=== PATIENT | male | born 1955 | race African-American/Black ===

== ENCOUNTER 2019-08-25 14:34 | Inpatient (IN) | payer MEDICARE, MEDICAID ==
[~2019-08-25] VITALS: Ht 172.7 cm; Wt 78.5 kg
[~2019-08-25 14:34] MED LIST: BENA40TA9 PO; HYDR12.54 PO; PHEN100C4 PO; SIMV10TA6 PO
[2019-08-25 17:10] LABS: BASOPHILS % 0.6 % (0.0-2.0); EOSINOPHILS % 0.1 % (0.0-5.0); HEMATOCRIT. 42.9 % (42.0-52.0); HEMOGLOBIN. 14.3 g/dL (14.0-18.0); LYMPHOCYTES % 12.4 % (20.0-50.0); MEAN CORPUSCULAR HEMOGLOBIN 30.9 pg (28.0-32.0); MEAN CORPUSCULAR VOLUME 92.4 fL (80.0-94.0); MEAN PLATELET VOLUME 9.2 fl (7.4-10.4); MONOCYTES % 5.7 % (2.0-8.0); NEUTROPHILS % 81.2 % (40.0-76.0); PLATELET 178 x1000/uL (130-400); RED BLOOD CELL COUNT 4.65 mill/uL (4.7-6.1); RED CELL DISTRIBUTION WIDTH 13.9 % (11.6-14.6)
[2019-08-25 17:13] LABS: CHLORIDE 106 mEq/L (98-107)
[2019-08-25 17:16] LABS: PARTIAL THROMBOPLASTIN TIME 30.5 sec (23.4-31.0); PROTHROMBIN TIME 10.3 sec (9.6-11.0)
[2019-08-25] MEDS ORDERED: PHENYTOIN SODIUM 1,000 MG in SODIUM CHLORIDE 0.9% 100 ML IV ONE (18:15)
[2019-08-25] MEDS ORDERED: ASPIRIN 325MG EC TABLET PO ONE (19:00)
[2019-08-25] MEDS ORDERED: TRAMADOL 50MG TABLET PO PRN (19:00)
[2019-08-25] MEDS ORDERED: ACETAMINOPHEN 325MG TABLET PO PRN (19:00)
[2019-08-25] MEDS ORDERED: ONDANSETRON HCL 4MG/2ML INJ IV PRN (19:00)
[2019-08-25] MEDS ORDERED: NITROGLYCERIN 0.4MG TABLET SL SL PRN (19:00)
[2019-08-25] MEDS ORDERED: DOCUSATE SODIUM 100MG CAPSULE PO PRN (19:00)
[2019-08-25] MEDS ORDERED: IPRATROPIUM/ALBUTEROL 0.5-3(2.5)MG/3ML NEB NEB PRN (19:00)
[2019-08-25] MEDS ORDERED: MAGNESIUM/ALUMINUM HYDROXIDE/SIMETHICONE 30ML UDC PO PRN (19:00)
[2019-08-25] MEDS ORDERED: ZOLPIDEM TARTRATE 5MG TABLET PO PRN (19:00)
[2019-08-25] MEDS ORDERED: LORAZEPAM 2MG/ML CPJ IV PRN (19:00)
[2019-08-25] MEDS ORDERED: CLONIDINE 0.1MG TABLET PO PRN (19:00)
[2019-08-25] MEDS ORDERED: GUAIFENESIN 200MG/10ML SUGAR FREE UDC PO PRN (19:00)
[2019-08-26 02:45] VITALS: BP 139/85
[2019-08-26 04:00] VITALS: BP 131/77
[2019-08-26] MEDS: FAMOTIDINE 20MG TABLET PO SCH ×2 (10:29→21:41)
[2019-08-26] MEDS: ENOXAPARIN 40MG/0.4ML SYR SUBCUT SCH (10:29)
[2019-08-26] MEDS: CLOPIDOGREL 75MG TABLET PO SCH (10:29)
[2019-08-26 12:00] VITALS: BP 133/82
[2019-08-26 16:00] VITALS: BP 144/85
[2019-08-26 20:00] VITALS: BP 134/89
[2019-08-26] MEDS ORDERED: PHENYTOIN SODIUM EXTENDED 100MG CAPSULE PO SCH (21:00)
[2019-08-27] VITALS: BP 130/85
[2019-08-27 04:00] VITALS: BP 125/86
[2019-08-27 08:00] VITALS: BP 114/81
[2019-08-27 08:24] LABS: *AMPHETAMINES SCREEN URINE NEGATIVE (NEGATIVE); *BARBITURATES SCREEN URINE NEGATIVE (NEGATIVE)
[2019-08-27 08:25] LABS: *BENZODIAZEPINES SCREEN URINE NEGATIVE (NEGATIVE); *COCAINE SCREEN URINE NEGATIVE (NEGATIVE); CANNABINOID URINE SCREEN NEGATIVE (NEGATIVE); METHADONE URINE SCREEN NEGATIVE (NEGATIVE); OPIATES URINE SCREEN NEGATIVE (NEGATIVE); PHENCYCLIDINE URINE SCREEN NEGATIVE (NEGATIVE)
[2019-08-27] MEDS: FAMOTIDINE 20MG TABLET PO SCH (10:25)
[2019-08-27] MEDS: CLOPIDOGREL 75MG TABLET PO SCH (10:25)
[2019-08-27] MEDS: ENOXAPARIN 40MG/0.4ML SYR SUBCUT SCH (10:30)
[2019-08-27 11:57] VITALS: BP 139/71
[2019-08-27 12:08] VITALS: BP 139/71
== END 2019-08-27 12:45 | disposition home or self-care (01) | DRG 682 ==
LOC: ER 14:34 → SUPCPDRO 18:58 → 7WST 19:03 → ENRESERV 08-26 02:10
PROVIDERS: ADMIT Internal Medicine; ATTEND Internal Medicine
DX: N17.9 Acute kidney failure, unspecified (principal); G93.41 Metabolic encephalopathy; G40.909 Epilepsy, unspecified, not intractable, without status epilepticus; I10 Essential (primary) hypertension; Z86.73 Personal history of transient ischemic attack (TIA), and cerebral infarction without residual deficits; Z79.02 Long term (current) use of antithrombotics/antiplatelets; Z87.891 Personal history of nicotine dependence
CPT/HCPCS: 36415; 70551; 71045; 80061; 80185; 80305; 82962; 83036; 83880; 84484; 93005; 93306; 93970; 99285; J1165; J1650; J7050

== ENCOUNTER 2020-11-03 12:28 | Inpatient (IN) | payer MEDICARE, OTHER ==
[~2020-11-03] VITALS: Ht 182.9 cm; Wt 77.1 kg
[~2020-11-03 12:28] MED LIST changes: -SIMV10TA6 PO; +SIMV10TA97 PO
[2020-11-03 13:40] LABS: HEMATOCRIT. 44.9 % (42.0-52.0); HEMOGLOBIN. 14.6 g/dL (14.0-18.0); MEAN CORPUSCULAR VOLUME 92.1 fL (80.0-94.0); MEAN PLATELET VOLUME 9.5 fl (7.4-10.4); PLATELET 313 x1000/uL (130-400); RED BLOOD CELL COUNT 4.88 mill/uL (4.7-6.1); RED CELL DISTRIBUTION WIDTH 13.7 % (11.6-14.6)
[2020-11-03 13:47] LABS: CHLORIDE 109 mEq/L (98-107)
[2020-11-03 13:50] LABS: INR 1.1; PROTHROMBIN TIME 11.7 sec (9.6-11.0)
[2020-11-03 13:51] LABS: ETHANOL BLOOD < 10 mg/dL
[2020-11-03 13:54] LABS: LDL CHOLESTEROL 118 mg/dL (5-100)
[2020-11-03 13:57] LABS: PLATELET ESTIMATE NORMAL
[2020-11-03 14:48] LABS: CLARITY URINE CLEAR (CLEAR); COLOR URINE YELLOW (YELLOW); KETONES URINE NEGATIVE (NEGATIVE); LEUKOCYTE ESTERASE URINE NEGATIVE (NEGATIVE); NITRITE URINE NEGATIVE (NEGATIVE); OCCULT BLOOD URINE NEGATIVE (NEGATIVE); PROTEIN URINE 1+ (NEGATIVE); SPECIFIC GRAVITY URINE 1.033 (1.005-1.030)
[2020-11-03 16:56] LABS: *AMPHETAMINES SCREEN URINE NEGATIVE (NEGATIVE); *BARBITURATES SCREEN URINE NEGATIVE (NEGATIVE); *BENZODIAZEPINES SCREEN URINE NEGATIVE (NEGATIVE)
[2020-11-03 16:57] LABS: *COCAINE SCREEN URINE NEGATIVE (NEGATIVE); CANNABINOID URINE SCREEN NEGATIVE (NEGATIVE); METHADONE URINE SCREEN NEGATIVE (NEGATIVE); OPIATES URINE SCREEN NEGATIVE (NEGATIVE); PHENCYCLIDINE URINE SCREEN NEGATIVE (NEGATIVE)
[2020-11-03 17:05] LABS: BG BASE EXCESS -4.7 mmol/L (-2.0-2.0); BG CARBOXYHEMOGLOBIN 0.6 % (0.5-1.5); BG DEOXYHEMOGLOBIN 3.7 % (0.0-5.0); BG HCO3 ACT 17.4 mmol/L (22.0-26.0); BG METHEMOGLOBIN 0.2 % (0.0-1.5); BG OXYGEN SATURATION 96.3 % (92.0-98.5); BG OXYHEMOGLOBIN 95.5 % (94.0-97.0); BG PCO2 25.4 mmHg (35.0-45.0); BG PH 7.453 (7.350-7.450); BG PO2 82.6 mmHg (75.0-100.0); BG SAMPLE SITE RIGHT RADIAL; BG TOTAL HEMOGLOBIN 14.8 g/dL (12.0-18.0); BG VENT MODE ROOM AIR
[2020-11-03] MEDS ORDERED: DOCUSATE SODIUM 100MG CAPSULE PO PRN (19:15)
[2020-11-03] MEDS ORDERED: MAGNESIUM/ALUMINUM HYDROXIDE/SIMETHICONE 30ML UDC PO PRN (19:15)
[2020-11-03] MEDS ORDERED: ONDANSETRON HCL 4MG/2ML INJ IV PRN (19:15)
[2020-11-03] MEDS ORDERED: ACETAMINOPHEN 325MG TABLET PO PRN (19:15)
[2020-11-03] MEDS ORDERED: CLONIDINE 0.1MG TABLET PO PRN (19:15)
[2020-11-03] MEDS ORDERED: GUAIFENESIN 200MG/10ML SUGAR FREE UDC PO PRN (19:15)
[2020-11-03] MEDS ORDERED: CEFTRIAXONE 1 G PREMIX 50 ML IV SCH (20:00)
[2020-11-03] MEDS ORDERED: AZITHROMYCIN 500 MG in DEXT 5% WATER 250 ML IV SCH (20:30)
[2020-11-04] MEDS: ENOXAPARIN 40MG/0.4ML SYR SUBCUT SCH ×2 (01:01→21:20)
[2020-11-04 06:40] LABS: HEMATOCRIT. 42.3 % (42.0-52.0); HEMOGLOBIN. 13.9 g/dL (14.0-18.0); MEAN CORPUSCULAR VOLUME 91.5 fL (80.0-94.0); MEAN PLATELET VOLUME 8.9 fl (7.4-10.4); PLATELET 300 x1000/uL (130-400); RED BLOOD CELL COUNT 4.62 mill/uL (4.7-6.1); RED CELL DISTRIBUTION WIDTH 13.4 % (11.6-14.6)
[2020-11-04 06:43] LABS: CHLORIDE 106 mEq/L (98-107)
[2020-11-04] MEDS: ASPIRIN 81MG EC TABLET PO SCH (13:32)
[2020-11-04] MEDS: LISINOPRIL 10MG TABLET PO SCH (13:32)
[2020-11-04 14:23] LABS: PLATELET ESTIMATE NORMAL
[2020-11-04 19:49] VITALS: BP 138/92
[2020-11-04 20:00] VITALS: BP 111/76
[2020-11-04] MEDS: CEFTRIAXONE 1,000 MG in DEXTROSE 5% WATER 50 ML IV SCH (20:06)
[2020-11-04] MEDS: AZITHROMYCIN 500 MG in DEXT 5% WATER 250 ML IV SCH (20:06)
[2020-11-04 20:57] VITALS: BP 138/92
[2020-11-04] MEDS: HYDROCODONE/ACETAMINOPHEN 5/325MG TABLET PO PRN (21:20)
[2020-11-04] MEDS: ATORVASTATIN CALCIUM 40MG TABLET PO SCH (21:20)
[2020-11-05] VITALS: BP 119/80
[2020-11-05 04:00] VITALS: BP 122/74
[2020-11-05] MEDS: ASPIRIN 81MG EC TABLET PO SCH (09:00)
[2020-11-05 09:44] VITALS: BP 134/85
[2020-11-05] MEDS: LISINOPRIL 10MG TABLET PO SCH (09:45)
[2020-11-05] MEDS ORDERED: LORAZEPAM 2MG/ML CPJ IV PRN (11:00)
[2020-11-05 13:30] VITALS: BP 124/77
[2020-11-05 16:57] VITALS: BP 124/80
[2020-11-05 20:00] VITALS: BP 134/80
[2020-11-05] MEDS: ATORVASTATIN CALCIUM 40MG TABLET PO SCH (21:13)
[2020-11-05] MEDS: AZITHROMYCIN 500 MG in DEXT 5% WATER 250 ML IV SCH (21:13)
[2020-11-05] MEDS: CEFTRIAXONE 1,000 MG in DEXTROSE 5% WATER 50 ML IV SCH (21:13)
[2020-11-05] MEDS: HYDROCODONE/ACETAMINOPHEN 5/325MG TABLET PO PRN (21:13)
[2020-11-05] MEDS: ENOXAPARIN 40MG/0.4ML SYR SUBCUT SCH (21:13)
[2020-11-06] VITALS: BP 128/80
[2020-11-06 04:00] VITALS: BP 128/84
[2020-11-06 09:46] VITALS: BP 138/87
[2020-11-06] MEDS: LISINOPRIL 10MG TABLET PO SCH (09:47)
[2020-11-06] MEDS: HYDROCODONE/ACETAMINOPHEN 5/325MG TABLET PO PRN (09:47)
[2020-11-06] MEDS: ASPIRIN 81MG EC TABLET PO SCH (09:47)
[2020-11-06 13:15] VITALS: BP 127/76
[2020-11-06 16:43] VITALS: BP 119/85
[2020-11-06 20:00] VITALS: BP 131/79
[2020-11-06] MEDS: AZITHROMYCIN 500 MG in DEXT 5% WATER 250 ML IV SCH (20:31)
[2020-11-06] MEDS: CEFTRIAXONE 1,000 MG in DEXTROSE 5% WATER 50 ML IV SCH (20:31)
[2020-11-06] MEDS: ATORVASTATIN CALCIUM 40MG TABLET PO SCH (20:36)
[2020-11-06] MEDS: ENOXAPARIN 40MG/0.4ML SYR SUBCUT SCH (20:37)
[2020-11-07] VITALS: BP 127/82
[2020-11-07 04:00] VITALS: BP 122/85
[2020-11-07] MEDS: LISINOPRIL 10MG TABLET PO SCH (10:02)
[2020-11-07] MEDS: ASPIRIN 81MG EC TABLET PO SCH (10:02)
[2020-11-07 13:37] VITALS: BP 126/86
[2020-11-07 16:00] VITALS: BP 119/89
[2020-11-07 20:00] VITALS: BP 126/56
[2020-11-07] MEDS: AZITHROMYCIN 500 MG in DEXT 5% WATER 250 ML IV SCH (21:11)
[2020-11-07] MEDS: CEFTRIAXONE 1,000 MG in DEXTROSE 5% WATER 50 ML IV SCH (21:11)
[2020-11-07] MEDS: ATORVASTATIN CALCIUM 40MG TABLET PO SCH (21:11)
[2020-11-07] MEDS: ENOXAPARIN 40MG/0.4ML SYR SUBCUT SCH (21:12)
[2020-11-08] VITALS: BP 121/84
[2020-11-08 04:00] VITALS: BP 135/86
[2020-11-08 08:00] VITALS: BP 118/81
[2020-11-08] MEDS: ASPIRIN 81MG EC TABLET PO SCH (13:15)
[2020-11-08] MEDS: QUETIAPINE FUMARATE 25MG TABLET PO SCH (13:15)
[2020-11-08] MEDS: LISINOPRIL 10MG TABLET PO SCH (13:16)
[2020-11-08 16:00] VITALS: BP 116/75
[2020-11-08 20:00] VITALS: BP 116/79
[2020-11-08] MEDS: ENOXAPARIN 40MG/0.4ML SYR SUBCUT SCH (22:18)
[2020-11-08] MEDS: ATORVASTATIN CALCIUM 40MG TABLET PO SCH (22:18)
[2020-11-08] MEDS: LEVETIRACETAM 500MG TABLET PO SCH (22:18)
[2020-11-09] VITALS: BP 120/60
[2020-11-09 00:21] LABS: T4 FREE 1.59 ng/dL (0.76-1.46)
[2020-11-09 01:28] LABS: FOLIC ACID (FOLATE) SERUM 5.9 ng/mL (>5.38)
[2020-11-09 04:00] VITALS: BP 119/80
[2020-11-09 08:00] VITALS: BP 121/84
[2020-11-09] MEDS: QUETIAPINE FUMARATE 25MG TABLET PO SCH (09:38)
[2020-11-09] MEDS: ASPIRIN 81MG EC TABLET PO SCH (09:38)
[2020-11-09] MEDS: CLOPIDOGREL 75MG TABLET PO SCH (09:38)
[2020-11-09] MEDS: LEVETIRACETAM 500MG TABLET PO SCH ×2 (09:38→22:23)
[2020-11-09] MEDS: LISINOPRIL 10MG TABLET PO SCH (09:39)
[2020-11-09 12:00] VITALS: BP 110/56
[2020-11-09 16:00] VITALS: BP 112/70
[2020-11-09] MEDS ORDERED: IOHEXOL-350 100 ML BOTTLE ONE (16:32)
[2020-11-09 20:00] VITALS: BP 100/60
[2020-11-09] MEDS: ENOXAPARIN 40MG/0.4ML SYR SUBCUT SCH (22:23)
[2020-11-09] MEDS: ATORVASTATIN CALCIUM 40MG TABLET PO SCH (22:23)
[2020-11-10] VITALS: BP 102/66
[2020-11-10 04:00] VITALS: BP 118/72
[2020-11-10 08:00] VITALS: BP 138/88
[2020-11-10] MEDS: ASPIRIN 81MG EC TABLET PO SCH (09:00)
[2020-11-10] MEDS: QUETIAPINE FUMARATE 25MG TABLET PO SCH (09:42)
[2020-11-10] MEDS: CLOPIDOGREL 75MG TABLET PO SCH (09:43)
[2020-11-10] MEDS: LEVETIRACETAM 500MG TABLET PO SCH ×2 (09:43→20:21)
[2020-11-10] MEDS: LISINOPRIL 10MG TABLET PO SCH (09:43)
[2020-11-10 12:00] VITALS: BP 95/69
[2020-11-10 16:00] VITALS: BP 108/79
[2020-11-10 20:00] VITALS: BP 105/76
[2020-11-10] MEDS: ATORVASTATIN CALCIUM 40MG TABLET PO SCH (20:21)
[2020-11-10] MEDS: ENOXAPARIN 40MG/0.4ML SYR SUBCUT SCH (20:21)
[2020-11-11] VITALS: BP 110/74
[2020-11-11 04:00] VITALS: BP 131/82
[2020-11-11 08:00] VITALS: BP 111/77
[2020-11-11] MEDS: CLOPIDOGREL 75MG TABLET PO SCH (08:06)
[2020-11-11] MEDS: LISINOPRIL 10MG TABLET PO SCH (08:06)
[2020-11-11] MEDS: QUETIAPINE FUMARATE 25MG TABLET PO SCH (08:06)
[2020-11-11] MEDS: LEVETIRACETAM 500MG TABLET PO SCH ×2 (08:06→21:07)
[2020-11-11] MEDS: ASPIRIN 81MG EC TABLET PO SCH (08:06)
[2020-11-11 12:00] VITALS: BP 99/69
[2020-11-11 16:00] VITALS: BP 176/74
[2020-11-11 20:00] VITALS: BP 103/66
[2020-11-11] MEDS: ATORVASTATIN CALCIUM 40MG TABLET PO SCH (21:07)
[2020-11-11] MEDS: ENOXAPARIN 40MG/0.4ML SYR SUBCUT SCH (21:08)
[2020-11-11 21:57] LABS: BASOPHILS % 0.7 % (0.0-2.0); EOSINOPHILS % 1.2 % (0.0-5.0); HEMOGLOBIN. 14.1 g/dL (14.0-18.0); LYMPHOCYTES % 14.4 % (20.0-50.0); MEAN CORPUSCULAR HEMOGLOBIN 30.2 pg (28.0-32.0); MEAN CORPUSCULAR VOLUME 92.2 fL (80.0-94.0); MEAN PLATELET VOLUME 8.7 fl (7.4-10.4); MONOCYTES % 12.8 % (2.0-8.0); NEUTROPHILS % 70.9 % (40.0-76.0); PLATELET 282 x1000/uL (130-400); RED BLOOD CELL COUNT 4.66 mill/uL (4.7-6.1); RED CELL DISTRIBUTION WIDTH 13.4 % (11.6-14.6)
[2020-11-11 22:17] LABS: CHLORIDE 103 mEq/L (98-107)
[2020-11-12] VITALS: BP 103/68
[2020-11-12 04:00] VITALS: BP 113/74
[2020-11-12 06:25] LABS: HEMATOCRIT 41.7 % (42.0-52.0); MEAN CORPUSCULAR HEMOGLOBIN 30.4 pg (28.0-32.0); MEAN CORPUSCULAR VOLUME 90.9 fL (80.0-94.0); PLATELET 337 x1000/uL (130-400); RED BLOOD CELL COUNT 4.59 mill/uL (4.7-6.1); RED CELL DISTRIBUTION WIDTH 13.3 % (11.6-14.6)
[2020-11-12] MEDS: ASPIRIN 81MG EC TABLET PO SCH (09:39)
[2020-11-12] MEDS: LEVETIRACETAM 500MG TABLET PO SCH (09:39)
[2020-11-12] MEDS: QUETIAPINE FUMARATE 25MG TABLET PO SCH (09:50)
[2020-11-12] MEDS: LISINOPRIL 10MG TABLET PO SCH (09:50)
[2020-11-12] MEDS: CLOPIDOGREL 75MG TABLET PO SCH (09:50)
[2020-11-12] MEDS ORDERED: IOHEXOL-350 100 ML BOTTLE ONE (10:25)
[2020-11-12 12:49] VITALS: BP 128/80
[2020-11-12 16:14] VITALS: BP 123/77
[2020-11-12 16:56] VITALS: BP 101/65
== END 2020-11-12 19:30 | DRG 871 ==
LOC: ER 12:28 → MICUSO 18:47 → EDBEDREQ 18:49 → EDBEDREQSVC 18:49 → EDBEDREQ 18:50 → 8WST 11-04 10:09
PROVIDERS: ADMIT Hospitalist; ATTEND Hospitalist
DX: A41.89 Other specified sepsis (principal); U07.1 COVID-19; G92 Toxic encephalopathy; J12.82 Pneumonia due to coronavirus disease 2019; I69.354 Hemiplegia and hemiparesis following cerebral infarction affecting left non-dominant side; E78.5 Hyperlipidemia, unspecified; E86.0 Dehydration; I10 Essential (primary) hypertension; E78.00 Pure hypercholesterolemia, unspecified; Z79.899 Other long term (current) drug therapy
CPT/HCPCS: 36415; 36600; 70496; 70498; 71045; 80053; 80305; 80320; 81003; 82140; 82375; 82565; 82607; 82746; 82805; 82962; 83036; 83721; 84439; 84443; 84481; 84484; 85025; 85027; 93005; 93970; 99285; C1893; J0456; J0696; J1650; J7040; J7060; Q9967; U0003; A4315; G0480

== ENCOUNTER 2023-05-17 20:24 | Emergency (ER) | payer MEDICARE, OTHER ==
[~2023-05-17] VITALS: Ht 180.3 cm; Wt 77.0 kg
[~2023-05-17 20:24] MED LIST changes: -BENA40TA9 PO; +BENA40TA91 PO
[2023-05-17 20:40] VITALS: PULSE 65
[2023-05-17 21:02] VITALS: BP 152/86; RESP 16; TEMP 99; O2SAT 100
[2023-05-18] MEDS ORDERED: ACETAMINOPHEN WITH CODEINE 300/30MG TABLET PO ONE
[2023-05-18] MEDS ORDERED: T3 PO (01:18)
== END 2023-05-18 01:33 | disposition home or self-care (01) ==
LOC: ER 20:24
DX: R10.30 Lower abdominal pain, unspecified (principal); E11.9 Type 2 diabetes mellitus without complications; I10 Essential (primary) hypertension; Z86.73 Personal history of transient ischemic attack (TIA), and cerebral infarction without residual deficits
CPT/HCPCS: 72170; 99283